=== PATIENT | male | born 1990 | race Caucasian/White ===

== ENCOUNTER 2017-03-24 06:03 | Inpatient (IN) | payer BC, MEDICAID ==
[2017-03-24] VITALS (7 sets, daily range): BP systolic 109–129; BP diastolic 61–77
[~2017-03-24] VITALS: Ht 182.9 cm; Wt 81.6 kg
[2017-03-24] MEDS ORDERED: PANT40TA25 PO (06:06)
[2017-03-24] MEDS ORDERED: PARO10TA89 PO (06:06)
[2017-03-24] MEDS ORDERED: ESZO2 PO (06:06)
[2017-03-24] MEDS ORDERED: HALOPERIDOL 5 MG TABLET PO ONE (06:30)
[2017-03-24 06:42] LABS: BASOPHILS % (AUTO) 0.5 % (0.0-2.0); EOSINOPHILS % (AUTO) 0.8 % (1.0-6.0); HEMATOCRIT 41.9 % (41-53); LYMPHOCYTES # (AUTO) 2.5 K/uL (1.0-4.8); LYMPHOCYTES % (AUTO) 34.3 % (22.0-44.0); MEAN CORPUSCULAR HEMOGLOBIN 29.8 pg (26.0-34.0); MEAN CORPUSCULAR HGB CONC 33.5 G/dL (31.0-37.0); MEAN CORPUSCULAR VOLUME 89 fL (80-100); MONOCYTES # (AUTO) 0.4 K/uL (0.1-1.0); MONOCYTES % (AUTO) 4.9 % (2.0-9.0); NEUTROPHILS # (AUTO) 4.4 K/uL (1.8-7.7); NEUTROPHILS % (AUTO) 59.5 % (40.0-70.0); PLATELET COUNT (AUTO) 162 K/uL (150-450); RED CELL DISTRIBUTION WIDTH 13.3 % (11.5-14.5)
[2017-03-24] MEDS ORDERED: LORazepam 2 MG TABLET PO PRN ×2 (06:45→17:00)
[2017-03-24 06:49] LABS: AMPHET/METH SCREEN,URINE NEGATIVE (NEGATIVE); BARBITURATE SCREEN, URINE NEGATIVE (NEGATIVE); BENZODIAZEPINES SCREEN,URINE POSITIVE (NEGATIVE); CANNABINOID SCREEN,URINE NEGATIVE (NEGATIVE); COCAINE SCREEN,URINE NEGATIVE (NEGATIVE); METHADONE SCREEN, URINE NEGATIVE (NEGATIVE); OPIATE SCREEN,URINE NEGATIVE (NEGATIVE)
[2017-03-24 07:10] LABS: PHENCYCLIDINE SCREEN,URINE NEGATIVE (NEGATIVE)
[2017-03-24 07:15] LABS: ANION GAP 7 mmol/L (8-16); CALCIUM, TOTAL 9.5 mg/dL (8.8-10.5); CARBON DIOXIDE 32 mmol/L (22-29); CHLORIDE 101 mmol/L (98-107); CREATININE 0.92 mg/dL (0.60-1.30); GLOMERULAR FILTR. RATE CALC > 60 mL/min (>60); GLUCOSE,RANDOM 117 mg/dL (70-110); POTASSIUM 3.9 mmol/L (3.5-5.1); SODIUM SERUM 140 mmol/L (136-145); UREA NITROGEN, BLOOD 16 mg/dL (7-18)
[2017-03-24 07:20] LABS: ALANINE AMINOTRANSFERASE 29 U/L (12-78); ALBUMIN 4.1 g/dL (3.4-5.0); ALKALINE PHOSPHATASE 86 U/L (46-116); ASPARTATE AMINOTRANSFERASE 26 U/L (15-37); BILIRUBIN,TOTAL 0.3 mg/dL (0.1-1.0); TOTAL PROTEIN, SERUM 7.7 g/dL (6.4-8.2)
[2017-03-24] MEDS ORDERED: INFLUENZA VIRUS VACCINE QVS 2017-18 (3YR+)/PF 60 MCG/0.5 ML SYRINGE IM ONE (11:30)
[2017-03-24] MEDS ORDERED: PNEUMOCOCCAL VACCINE POLYVALENT 0.5 ML VIAL [PPSV23] IM ONE (11:30)
[2017-03-24] MEDS ORDERED: PHENYLEPHRINE/SHK LV/MIN OIL/PET 57 GM OINTMENT TP PRN (11:45)
[2017-03-24] MEDS: NICOTINE 21 MG/24 HOUR PATCH TD SCH (14:09)
[2017-03-24] MEDS: PSYLLIUM SEED ORANGE SF 5.8 GM/PACKET PO SCH (16:18)
[2017-03-24] MEDS ORDERED: LOPERAMIDE HCL 2 MG CAPSULE PO PRN (17:00)
[2017-03-24] MEDS ORDERED: CYANOCOBALAMIN 1,000 MCG/ML VIAL IM ONE (17:00)
[2017-03-24] MEDS ORDERED: GuaiFENesin/D-METHORPHAN [SUGAR-FREE] 200-20MG/10 ML SYRUP UDCUP PO PRN (17:00)
[2017-03-24] MEDS: THIAMINE HCL 100 MG TABLET PO SCH (17:20)
[2017-03-24] MEDS: DULoxetine HCL 20 MG CAPSULE PO SCH (17:20)
[2017-03-24] MEDS: FOLIC ACID 1 MG TABLET PO SCH (17:20)
[2017-03-24] MEDS: MULTIVITAMINS WITH MINERALS, THERAPEUTIC TABLET PO SCH (17:20)
[2017-03-24] MEDS: TraZODone HCL 50 MG TABLET PO SCH (20:20)
[2017-03-24] MEDS: OLANZapine 5 MG TABLET PO SCH (20:20)
[2017-03-25] VITALS (7 sets, daily range): BP systolic 105–124; BP diastolic 68–78
[2017-03-25 08:45] LABS: CHOL/HDL RATIO 4.2 (4.2-7.3)
[2017-03-25] MEDS: NICOTINE 21 MG/24 HOUR PATCH TD SCH (09:33)
[2017-03-25] MEDS: DULoxetine HCL 20 MG CAPSULE PO SCH ×2 (09:33→17:26)
[2017-03-25] MEDS: PSYLLIUM SEED ORANGE SF 5.8 GM/PACKET PO SCH ×2 (09:33→17:26)
[2017-03-25] MEDS: MULTIVITAMINS WITH MINERALS, THERAPEUTIC TABLET PO SCH (09:34)
[2017-03-25] MEDS: FOLIC ACID 1 MG TABLET PO SCH (09:34)
[2017-03-25] MEDS: PANTOPRAZOLE SODIUM 40 MG DR TABLET PO SCH (09:34)
[2017-03-25] MEDS: THIAMINE HCL 100 MG TABLET PO SCH ×2 (09:34→17:26)
[2017-03-25] MEDS: LORazepam 2 MG TABLET PO SCH ×4 (09:34→20:50)
[2017-03-25] MEDS: ALBUTEROL SULFATE HFA 90 MCG/PUFF 8 GM INHALER IH PRN ×2 (10:35→18:09)
[2017-03-25] MEDS: HALOPERIDOL 5 MG TABLET PO PRN (11:18)
[2017-03-25] MEDS: TraZODone HCL 50 MG TABLET PO SCH (20:49)
[2017-03-25] MEDS: OLANZapine 5 MG TABLET PO SCH (20:49)
[2017-03-26 05:38] VITALS: BP 125/84
[2017-03-26] MEDS: LORazepam 2 MG TABLET PO PRN ×2 (05:52→18:58)
[2017-03-26] MEDS: ALBUTEROL SULFATE HFA 90 MCG/PUFF 8 GM INHALER IH PRN ×2 (05:53→14:30)
[2017-03-26] MEDS: LORazepam 2 MG TABLET PO SCH ×5 (08:45→21:39)
[2017-03-26] MEDS: THIAMINE HCL 100 MG TABLET PO SCH ×2 (08:45→16:17)
[2017-03-26] MEDS: HALOPERIDOL 5 MG TABLET PO PRN ×2 (08:45→18:57)
[2017-03-26] MEDS: FOLIC ACID 1 MG TABLET PO SCH (08:45)
[2017-03-26] MEDS: MULTIVITAMINS WITH MINERALS, THERAPEUTIC TABLET PO SCH (08:45)
[2017-03-26] MEDS: PANTOPRAZOLE SODIUM 40 MG DR TABLET PO SCH (08:45)
[2017-03-26] MEDS ORDERED: AZITHROMYCIN 250 MG TABLET PO ONE (08:45)
[2017-03-26] MEDS: PSYLLIUM SEED ORANGE SF 5.8 GM/PACKET PO SCH ×5 (08:45→21:15)
[2017-03-26] MEDS ORDERED: AZITHROMYCIN 250 MG TABLET PO SCH (09:00)
[2017-03-26] MEDS: NICOTINE 21 MG/24 HOUR PATCH TD SCH (09:04)
[2017-03-26 09:15] VITALS: BP 115/60
[2017-03-26 09:16] VITALS: BP 115/60
[2017-03-26] MEDS: DULoxetine HCL 20 MG CAPSULE PO SCH ×2 (09:56→16:17)
[2017-03-26 16:12] VITALS: BP 122/80
[2017-03-26 16:13] VITALS: BP 122/80
[2017-03-26] MEDS: OLANZapine 5 MG TABLET PO SCH (21:39)
[2017-03-26] MEDS: TraZODone HCL 50 MG TABLET PO SCH (21:39)
[2017-03-26] MEDS: ZOLPIDEM TARTRATE 10 MG TABLET PO PRN (21:45)
[2017-03-27 01:21] VITALS: BP_SYST 102; BP_DIAS 60; BP_DIAS 62
[2017-03-27] MEDS ORDERED: LORazepam 1 MG TABLET PO PRN (07:00)
[2017-03-27] MEDS: DULoxetine HCL 20 MG CAPSULE PO SCH ×2 (08:12→17:57)
[2017-03-27] MEDS: NICOTINE 21 MG/24 HOUR PATCH TD SCH (08:12)
[2017-03-27] MEDS: LORazepam 1 MG TABLET PO SCH ×4 (08:12→22:00)
[2017-03-27] MEDS: AZITHROMYCIN 250 MG TABLET PO SCH (08:12)
[2017-03-27] MEDS: FOLIC ACID 1 MG TABLET PO SCH (08:12)
[2017-03-27] MEDS: PSYLLIUM SEED ORANGE SF 5.8 GM/PACKET PO SCH ×4 (08:13→17:58)
[2017-03-27] MEDS: THIAMINE HCL 100 MG TABLET PO SCH ×2 (08:13→17:57)
[2017-03-27] MEDS: PANTOPRAZOLE SODIUM 40 MG DR TABLET PO SCH (08:13)
[2017-03-27 08:23] VITALS: BP 120/63
[2017-03-27 08:24] VITALS: BP 120/63
[2017-03-27] MEDS: ALBUTEROL SULFATE HFA 90 MCG/PUFF 8 GM INHALER IH PRN ×3 (08:35→17:07)
[2017-03-27] MEDS: MOMETASONE FUROATE 50 MCG/SPRAY 17 GM NASAL SPRAY NASAL SCH (09:00)
[2017-03-27] MEDS: HALOPERIDOL 5 MG TABLET PO PRN (14:42)
[2017-03-27] MEDS ORDERED: DiphenhydrAMINE HCL 50 MG/ML VIAL ONE (15:22)
[2017-03-27] MEDS ORDERED: LORazepam 2 MG/ML VIAL IM ONE (15:30)
[2017-03-27] MEDS ORDERED: HALOPERIDOL LACTATE 5 MG/ML VIAL IM ONE (15:30)
[2017-03-27] MEDS ORDERED: DiphenhydrAMINE HCL 50 MG/ML VIAL IM ONE (15:30)
[2017-03-27 16:30] VITALS: BP 117/68
[2017-03-27 17:07] VITALS: BP 117/68
[2017-03-27] MEDS: TraZODone HCL 50 MG TABLET PO SCH (21:06)
[2017-03-27] MEDS: OLANZapine 5 MG TABLET PO SCH (21:06)
[2017-03-27] MEDS: ZOLPIDEM TARTRATE 10 MG TABLET PO PRN (22:55)
[2017-03-28] VITALS: BP 109/68
[2017-03-28] MEDS ORDERED: LORazepam 1 MG TABLET PO PRN (07:00)
[2017-03-28 08:31] VITALS: BP 120/91
[2017-03-28 08:32] VITALS: BP 120/91
[2017-03-28] MEDS: AZITHROMYCIN 250 MG TABLET PO SCH (09:34)
[2017-03-28] MEDS: DULoxetine HCL 20 MG CAPSULE PO SCH ×2 (09:34→17:29)
[2017-03-28] MEDS: FOLIC ACID 1 MG TABLET PO SCH (09:35)
[2017-03-28] MEDS: PANTOPRAZOLE SODIUM 40 MG DR TABLET PO SCH (09:35)
[2017-03-28] MEDS: THIAMINE HCL 100 MG TABLET PO SCH ×2 (09:35→17:29)
[2017-03-28] MEDS: MOMETASONE FUROATE 50 MCG/SPRAY 17 GM NASAL SPRAY NASAL SCH ×2 (09:35→17:30)
[2017-03-28] MEDS: PSYLLIUM SEED ORANGE SF 5.8 GM/PACKET PO SCH ×3 (09:35→17:29)
[2017-03-28] MEDS: NICOTINE 21 MG/24 HOUR PATCH TD SCH (09:36)
[2017-03-28] MEDS: BACITRACIN 28.4 GM OINTMENT TP SCH ×2 (09:42→17:30)
[2017-03-28] MEDS: HALOPERIDOL 5 MG TABLET PO PRN (09:43)
[2017-03-28 13:49] VITALS: BP 119/76
[2017-03-28 17:20] VITALS: BP 121/71
[2017-03-28] MEDS: OLANZapine 5 MG TABLET PO SCH (20:39)
[2017-03-28] MEDS: TraZODone HCL 100 MG TABLET PO SCH (20:39)
[2017-03-29] MEDS: ZOLPIDEM TARTRATE 10 MG TABLET PO PRN ×2 (00:23→20:58)
[2017-03-29 00:42] VITALS: BP 118/62
[2017-03-29 00:53] VITALS: BP 118/64
[2017-03-29] MEDS: MOMETASONE FUROATE 50 MCG/SPRAY 17 GM NASAL SPRAY NASAL SCH ×2 (08:45→16:15)
[2017-03-29] MEDS: NICOTINE 21 MG/24 HOUR PATCH TD SCH (08:45)
[2017-03-29] MEDS: PANTOPRAZOLE SODIUM 40 MG DR TABLET PO SCH (08:45)
[2017-03-29] MEDS: PSYLLIUM SEED ORANGE SF 5.8 GM/PACKET PO SCH ×3 (08:45→16:15)
[2017-03-29] MEDS: THIAMINE HCL 100 MG TABLET PO SCH ×2 (08:45→16:15)
[2017-03-29] MEDS: DULoxetine HCL 20 MG CAPSULE PO SCH ×2 (08:45→16:15)
[2017-03-29] MEDS: AZITHROMYCIN 250 MG TABLET PO SCH (08:45)
[2017-03-29] MEDS: FOLIC ACID 1 MG TABLET PO SCH (08:45)
[2017-03-29] MEDS: BACITRACIN 28.4 GM OINTMENT TP SCH ×2 (08:46→17:25)
[2017-03-29] MEDS: HydrOXYzine PAMOATE 50 MG CAPSULE PO PRN ×2 (09:24→13:23)
[2017-03-29] MEDS: IBUPROFEN 600 MG TABLET PO PRN ×2 (09:29→15:50)
[2017-03-29] MEDS: ALBUTEROL SULFATE HFA 90 MCG/PUFF 8 GM INHALER IH PRN ×2 (09:30→16:15)
[2017-03-29 09:55] VITALS: BP 121/85
[2017-03-29 13:22] VITALS: BP 121/85
[2017-03-29] MEDS: HALOPERIDOL 5 MG TABLET PO PRN (15:51)
[2017-03-29 16:08] VITALS: BP 119/76
[2017-03-29] MEDS ORDERED: DiphenhydrAMINE HCL 25 MG CAPSULE PO ONE (18:45)
[2017-03-29] MEDS: OLANZapine 5 MG TABLET PO SCH (20:57)
[2017-03-29] MEDS: TraZODone HCL 100 MG TABLET PO SCH (20:58)
[2017-03-29 21:07] VITALS: BP 119/76
[2017-03-30 00:54] VITALS: BP 105/68
[2017-03-30 06:23] VITALS: BP 105/74
[2017-03-30 08:14] VITALS: BP 122/74
[2017-03-30] MEDS: MOMETASONE FUROATE 50 MCG/SPRAY 17 GM NASAL SPRAY NASAL SCH ×2 (08:25→16:52)
[2017-03-30] MEDS: THIAMINE HCL 100 MG TABLET PO SCH ×2 (08:26→16:51)
[2017-03-30] MEDS: DULoxetine HCL 20 MG CAPSULE PO SCH ×2 (08:26→16:51)
[2017-03-30] MEDS: FOLIC ACID 1 MG TABLET PO SCH (08:26)
[2017-03-30] MEDS: AZITHROMYCIN 250 MG TABLET PO SCH (08:26)
[2017-03-30] MEDS: PANTOPRAZOLE SODIUM 40 MG DR TABLET PO SCH (08:26)
[2017-03-30] MEDS: PSYLLIUM SEED ORANGE SF 5.8 GM/PACKET PO SCH ×3 (08:27→16:52)
[2017-03-30] MEDS: NICOTINE 21 MG/24 HOUR PATCH TD SCH (08:27)
[2017-03-30] MEDS: BACITRACIN 28.4 GM OINTMENT TP SCH ×2 (08:32→16:52)
[2017-03-30 08:48] VITALS: BP 122/74
[2017-03-30 09:03] LABS: CREATINE KINASE MB 1.4 ng/mL (0-5); CREATINE KINASE, TOTAL 139 U/L (39-308)
[2017-03-30] MEDS: IBUPROFEN 600 MG TABLET PO PRN (09:49)
[2017-03-30 16:34] VITALS: BP 122/83
[2017-03-30] MEDS: OLANZapine 5 MG TABLET PO SCH (20:38)
[2017-03-30] MEDS: ZOLPIDEM TARTRATE 10 MG TABLET PO PRN (20:38)
[2017-03-30] MEDS: TraZODone HCL 100 MG TABLET PO SCH (20:38)
[2017-03-31 06:02] VITALS: BP 122/83
[2017-03-31 06:36] VITALS: BP 114/84
[2017-03-31 08:12] VITALS: BP 113/56
[2017-03-31] MEDS: DULoxetine HCL 20 MG CAPSULE PO SCH ×2 (08:40→16:48)
[2017-03-31] MEDS: FOLIC ACID 1 MG TABLET PO SCH (08:40)
[2017-03-31] MEDS: PANTOPRAZOLE SODIUM 40 MG DR TABLET PO SCH (08:40)
[2017-03-31] MEDS: THIAMINE HCL 100 MG TABLET PO SCH ×2 (08:40→16:48)
[2017-03-31] MEDS: PSYLLIUM SEED ORANGE SF 5.8 GM/PACKET PO SCH ×3 (08:40→16:48)
[2017-03-31] MEDS: NICOTINE 21 MG/24 HOUR PATCH TD SCH (08:41)
[2017-03-31] MEDS: MOMETASONE FUROATE 50 MCG/SPRAY 17 GM NASAL SPRAY NASAL SCH ×2 (08:41→16:48)
[2017-03-31] MEDS: BACITRACIN 28.4 GM OINTMENT TP SCH ×2 (08:45→16:48)
[2017-03-31] MEDS: HALOPERIDOL 5 MG TABLET PO PRN (08:54)
[2017-03-31] MEDS: IBUPROFEN 600 MG TABLET PO PRN ×2 (09:04→16:49)
[2017-03-31 16:00] VITALS: BP 119/72
[2017-03-31] MEDS: OLANZapine 5 MG TABLET PO SCH (20:10)
[2017-03-31] MEDS: TraZODone HCL 100 MG TABLET PO SCH (20:10)
[2017-04-01 06:36] VITALS: BP 121/71
[2017-04-01] MEDS: DULoxetine HCL 20 MG CAPSULE PO SCH ×2 (08:07→16:40)
[2017-04-01] MEDS: MOMETASONE FUROATE 50 MCG/SPRAY 17 GM NASAL SPRAY NASAL SCH ×2 (08:07→16:39)
[2017-04-01] MEDS: NICOTINE 21 MG/24 HOUR PATCH TD SCH (08:07)
[2017-04-01] MEDS: PANTOPRAZOLE SODIUM 40 MG DR TABLET PO SCH (08:07)
[2017-04-01] MEDS: FOLIC ACID 1 MG TABLET PO SCH (08:07)
[2017-04-01] MEDS: THIAMINE HCL 100 MG TABLET PO SCH ×2 (08:07→16:40)
[2017-04-01] MEDS: PSYLLIUM SEED ORANGE SF 5.8 GM/PACKET PO SCH ×3 (08:07→16:40)
[2017-04-01] MEDS: BACITRACIN 28.4 GM OINTMENT TP SCH ×2 (08:08→16:43)
[2017-04-01] MEDS: IBUPROFEN 600 MG TABLET PO PRN (08:13)
[2017-04-01 08:15] VITALS: BP 122/72
[2017-04-01 09:39] VITALS: BP 122/72
[2017-04-01 16:18] VITALS: BP 124/77
[2017-04-01] MEDS: ALBUTEROL SULFATE HFA 90 MCG/PUFF 8 GM INHALER IH PRN (16:40)
[2017-04-01] MEDS: OLANZapine 5 MG TABLET PO SCH (20:24)
[2017-04-01] MEDS: ZOLPIDEM TARTRATE 10 MG TABLET PO PRN (20:25)
[2017-04-01] MEDS: TraZODone HCL 100 MG TABLET PO SCH (20:25)
[2017-04-02 05:32] VITALS: BP 120/79
[2017-04-02] MEDS: FOLIC ACID 1 MG TABLET PO SCH (08:36)
[2017-04-02] MEDS: MOMETASONE FUROATE 50 MCG/SPRAY 17 GM NASAL SPRAY NASAL SCH (08:36)
[2017-04-02] MEDS: NICOTINE 21 MG/24 HOUR PATCH TD SCH (08:36)
[2017-04-02] MEDS: PSYLLIUM SEED ORANGE SF 5.8 GM/PACKET PO SCH ×2 (08:36→12:24)
[2017-04-02] MEDS: THIAMINE HCL 100 MG TABLET PO SCH (08:36)
[2017-04-02] MEDS: DULoxetine HCL 20 MG CAPSULE PO SCH (08:36)
[2017-04-02] MEDS: PANTOPRAZOLE SODIUM 40 MG DR TABLET PO SCH (08:36)
[2017-04-02] MEDS: ALBUTEROL SULFATE HFA 90 MCG/PUFF 8 GM INHALER IH PRN (08:37)
[2017-04-02 08:56] VITALS: BP 122/74
[2017-04-02] MEDS: BACITRACIN 28.4 GM OINTMENT TP SCH (08:56)
[2017-04-02] MEDS ORDERED: OLAN5TAB2 PO (13:35)
[2017-04-02] MEDS ORDERED: NICO-704 TD (13:35)
[2017-04-02] MEDS ORDERED: DULO20CA30 PO (13:35)
[2017-04-02] MEDS ORDERED: TRAZ-147 PO (13:35)
[2017-04-02] MEDS ORDERED: PANT40TA25 PO (13:35)
== END 2017-04-02 14:30 | disposition home or self-care (01) | DRG 750 ==
LOC: EMS 06:04 → B2S 07:58
PROVIDERS: ADMIT Psychiatry & Neurology Child & Adolescent Psychiatry; ATTEND Psychiatry & Neurology Child & Adolescent Psychiatry
PROC: 3E0234Z Introduction of Serum, Toxoid and Vaccine into Muscle, Percutaneous Approach (ICD-10-PCS; principal; 2017-03-24)
DX: F25.1 Schizoaffective disorder, depressive type (principal); R45.851 Suicidal ideations; F29 Unspecified psychosis not due to a substance or known physiological condition; F41.9 Anxiety disorder, unspecified; J45.909 Unspecified asthma, uncomplicated; S01.91XA Laceration without foreign body of unspecified part of head, initial encounter; F15.90 Other stimulant use, unspecified, uncomplicated; K21.9 Gastro-esophageal reflux disease without esophagitis; K64.9 Unspecified hemorrhoids; F17.210 Nicotine dependence, cigarettes, uncomplicated; F60.3 Borderline personality disorder; F10.20 Alcohol dependence, uncomplicated; X78.1XXA Intentional self-harm by knife, initial encounter; Z90.49 Acquired absence of other specified parts of digestive tract; Z81.8 Family history of other mental and behavioral disorders; Z79.899 Other long term (current) drug therapy; Y93.89 Activity, other specified; Z91.5 Personal history of self-harm; Y92.89 Other specified places as the place of occurrence of the external cause; Z23 Encounter for immunization
CPT/HCPCS: 99285; G0480; J1200; J1630; J2060; J3420; J3535

== ENCOUNTER 2017-03-28 13:49 | Emergency (ER) | payer MEDICAID ==
[~2017-03-28] VITALS: Ht 182.9 cm; Wt 81.8 kg
[~2017-03-28 13:49] MED LIST: ESZO2 PO; PANT40TA25 PO; PARO10TA89 PO
[2017-03-28] MEDS ORDERED: KETOROLAC TROMETHAMINE 60 MG/2 ML VIAL IM ONE (14:45)
[2017-03-28] MEDS ORDERED: LORazepam 2 MG TABLET PO ONE (14:45)
[2017-03-28 16:17] VITALS: BP 120/78
== END 2017-03-28 16:59 | disposition home or self-care (01) ==
LOC: EMS 13:50
DX: S13.4XXA Sprain of ligaments of cervical spine, initial encounter (principal); S00.03XA Contusion of scalp, initial encounter; S20.229A Contusion of unspecified back wall of thorax, initial encounter; J45.909 Unspecified asthma, uncomplicated; F17.210 Nicotine dependence, cigarettes, uncomplicated; Z71.6 Tobacco abuse counseling; Z79.899 Other long term (current) drug therapy; W01.0XXA Fall on same level from slipping, tripping and stumbling without subsequent striking against object, initial encounter; Y93.89 Activity, other specified; Y92.89 Other specified places as the place of occurrence of the external cause; Y99.8 Other external cause status
CPT/HCPCS: 70450; 72070; 72100; 72125; 96372; 99284; 99406; J1885

== ENCOUNTER 2017-10-01 18:17 | Inpatient (IN) | payer MEDICAID ==
[~2017-10-01] VITALS: Ht 182.9 cm; Wt 83.0 kg
[~2017-10-01 18:17] MED LIST changes: +DULO20CA30 PO; -ESZO2 PO; -PANT40TA25 PO; -PARO10TA89 PO
[2017-10-01] MEDS ORDERED: HALOPERIDOL 5 MG TABLET PO PRN (21:15)
[2017-10-01 22:07] VITALS: BP 116/65
[2017-10-01] MEDS ORDERED: PNEUMOCOCCAL VACCINE POLYVALENT 0.5 ML VIAL [PPSV23] IM ONE (22:15)
[2017-10-01] MEDS: ZOLPIDEM TARTRATE 10 MG TABLET PO PRN (22:27)
[2017-10-02] VITALS (10 sets, daily range): BP systolic 105–124; BP diastolic 60–80
[2017-10-02] MEDS: LORazepam 2 MG TABLET PO PRN ×3 (00:02→16:06)
[2017-10-02 07:50] LABS: BASOPHILS % (AUTO) 0.6 % (0.0-2.0); HEMATOCRIT 40.6 % (41-53); HEMOGLOBIN 13.6 g/dL (13.5-17.5); LYMPHOCYTES # (AUTO) 2.8 K/uL (1.0-4.8); LYMPHOCYTES % (AUTO) 45.7 % (22.0-44.0); MEAN CORPUSCULAR HEMOGLOBIN 30.6 pg (26.0-34.0); MEAN CORPUSCULAR HGB CONC 33.6 G/dL (31.0-37.0); MEAN CORPUSCULAR VOLUME 91 fL (80-100); MONOCYTES # (AUTO) 0.4 K/uL (0.1-1.0); MONOCYTES % (AUTO) 6.6 % (2.0-9.0); NEUTROPHILS # (AUTO) 2.8 K/uL (1.8-7.7); NEUTROPHILS % (AUTO) 45.1 % (40.0-70.0); PLATELET COUNT (AUTO) 139 K/uL (150-450); RED BLOOD CELL COUNT(AUTO) 4.46 MIL/uL (4.50-5.90); RED CELL DISTRIBUTION WIDTH 13.7 % (11.5-14.5)
[2017-10-02 08:14] LABS: HEMOGLOBIN A1C 5.4 % (4.5-6.2)
[2017-10-02 08:20] LABS: AMPHET/METH SCREEN,URINE NEGATIVE (NEGATIVE); BARBITURATE SCREEN, URINE NEGATIVE (NEGATIVE); BENZODIAZEPINES SCREEN,URINE NEGATIVE (NEGATIVE); CANNABINOID SCREEN,URINE NEGATIVE (NEGATIVE); COCAINE SCREEN,URINE NEGATIVE (NEGATIVE); METHADONE SCREEN, URINE NEGATIVE (NEGATIVE); OPIATE SCREEN,URINE NEGATIVE (NEGATIVE)
[2017-10-02 08:21] LABS: PHENCYCLIDINE SCREEN,URINE NEGATIVE (NEGATIVE)
[2017-10-02 08:27] LABS: APPEARANCE,URINE CLEAR (CLEAR); BILIRUBIN,URINE NEGATIVE (NEGATIVE); GLUCOSE, URINE (UA) NEGATIVE (NEGATIVE); KETONES,URINE NEGATIVE (NEGATIVE); LEUKOCYTE ESTERASE ,URINE NEGATIVE (NEGATIVE); NITRATE,URINE NEGATIVE (NEGATIVE); OCCULT BLOOD,URINE NEGATIVE (NEGATIVE); PROTEIN,URINE NEGATIVE (NEGATIVE); UROBILINOGEN,URINE 0.2 mg/dL (<=1.0)
[2017-10-02 08:57] LABS: ALANINE AMINOTRANSFERASE 27 U/L (12-78); ALBUMIN 3.7 g/dL (3.4-5.0); ALKALINE PHOSPHATASE 63 U/L (46-116); ANION GAP 6 mmol/L (8-16); ASPARTATE AMINOTRANSFERASE 19 U/L (15-37); BILIRUBIN,TOTAL 0.3 mg/dL (0.1-1.0); CALCIUM, TOTAL 8.9 mg/dL (8.8-10.5); CARBON DIOXIDE 29 mmol/L (22-29); CHLORIDE 105 mmol/L (98-107); CHOL/HDL RATIO 4.3 (4.2-7.3); CHOLESTEROL 158 mg/dL (131-200); CREATININE 0.82 mg/dL (0.60-1.30); FREE T4 (FREE THYROXINE) 0.79 ng/dL (0.76-1.46); GLOMERULAR FILTR. RATE CALC > 60 mL/min (>60); GLUCOSE,RANDOM 86 mg/dL (70-110); HDL CHOLESTEROL 37 mg/dL (40-60); LDL CHOL (CALC.) 105 mg/dL (0-130); POTASSIUM 4.1 mmol/L (3.5-5.1); SODIUM SERUM 140 mmol/L (136-145); THYROID STIMULATING HORMONE 2.48 uIU/mL (0.36-3.74); TOTAL PROTEIN, SERUM 6.3 g/dL (6.4-8.2); TRIGLYCERIDES 78 mg/dL (15-150); UREA NITROGEN, BLOOD 13 mg/dL (7-18)
[2017-10-02] MEDS ORDERED: CYANOCOBALAMIN 1,000 MCG/ML VIAL IM ONE (11:00)
[2017-10-02] MEDS: FOLIC ACID 1 MG TABLET PO SCH (12:02)
[2017-10-02] MEDS: DULoxetine HCL 30 MG CAPSULE PO SCH (12:02)
[2017-10-02] MEDS: MULTIVITAMINS WITH MINERALS, THERAPEUTIC TABLET PO SCH (12:02)
[2017-10-02] MEDS: THIAMINE HCL 100 MG TABLET PO SCH ×2 (12:02→16:04)
[2017-10-02] MEDS ORDERED: IBUPROFEN 400 MG TABLET PO PRN (14:00)
[2017-10-02] MEDS ORDERED: MAG HYDROX/AL HYDROX/SIMETH ES 30 ML SUSPENSION UDCUP PO PRN (14:00)
[2017-10-02] MEDS ORDERED: NICOTINE 14 MG/24 HOUR PATCH TD PRN (14:00)
[2017-10-02] MEDS ORDERED: ACETAMINOPHEN 325 MG TABLET PO PRN (14:00)
[2017-10-02] MEDS ORDERED: LOPERAMIDE HCL 2 MG CAPSULE PO PRN (14:00)
[2017-10-02] MEDS ORDERED: CloNIDine HCL 0.1 MG TABLET PO PRN (14:00)
[2017-10-02] MEDS ORDERED: ALBUTEROL SULFATE HFA 90 MCG/PUFF 8 GM INHALER IH PRN (14:00)
[2017-10-02] MEDS ORDERED: PETROLATUM,WHITE 71 GM JELLY TP PRN (14:00)
[2017-10-02] MEDS ORDERED: ONDANSETRON HCL 4 MG TABLET PO PRN (14:00)
[2017-10-02] MEDS ORDERED: MAGNESIUM HYDROXIDE SUSPENSION 30 ML UDCUP PO PRN (14:00)
[2017-10-02] MEDS ORDERED: DOCUSATE SODIUM 100 MG CAPSULE PO PRN (14:00)
[2017-10-02] MEDS: NEOMYCIN/BACITRACIN/POLYMYXIN B 30 GM OINTMENT TP SCH (16:05)
[2017-10-02] MEDS: GuaiFENesin/D-METHORPHAN [SUGAR-FREE] 200-20MG/10 ML SYRUP UDCUP PO PRN (16:47)
[2017-10-03] VITALS (8 sets, daily range): BP systolic 110–121; BP diastolic 64–86
[2017-10-03] MEDS: ZOLPIDEM TARTRATE 10 MG TABLET PO PRN ×2 (00:07→22:13)
[2017-10-03] MEDS: LORazepam 2 MG TABLET PO PRN (02:57)
[2017-10-03] MEDS: GuaiFENesin/D-METHORPHAN [SUGAR-FREE] 200-20MG/10 ML SYRUP UDCUP PO PRN ×3 (02:58→20:32)
[2017-10-03] MEDS: DULoxetine HCL 30 MG CAPSULE PO SCH (08:51)
[2017-10-03] MEDS: THIAMINE HCL 100 MG TABLET PO SCH ×2 (08:52→17:34)
[2017-10-03] MEDS: NEOMYCIN/BACITRACIN/POLYMYXIN B 30 GM OINTMENT TP SCH ×2 (08:52→17:34)
[2017-10-03] MEDS: FOLIC ACID 1 MG TABLET PO SCH (08:52)
[2017-10-03] MEDS: MULTIVITAMINS WITH MINERALS, THERAPEUTIC TABLET PO SCH (08:52)
[2017-10-03] MEDS: LORazepam 2 MG TABLET PO SCH ×4 (08:52→21:36)
[2017-10-04 03:22] VITALS: BP_SYST 116; BP_SYST 122; BP_DIAS 67; BP_DIAS 70
[2017-10-04] MEDS: GuaiFENesin/D-METHORPHAN [SUGAR-FREE] 200-20MG/10 ML SYRUP UDCUP PO PRN ×3 (03:27→20:06)
[2017-10-04] MEDS: LORazepam 2 MG TABLET PO PRN (03:28)
[2017-10-04 05:08] VITALS: BP 116/70
[2017-10-04] MEDS: FOLIC ACID 1 MG TABLET PO SCH (08:03)
[2017-10-04] MEDS: MULTIVITAMINS WITH MINERALS, THERAPEUTIC TABLET PO SCH (08:03)
[2017-10-04] MEDS: LORazepam 2 MG TABLET PO SCH ×4 (08:03→20:13)
[2017-10-04] MEDS: THIAMINE HCL 100 MG TABLET PO SCH ×2 (08:03→16:09)
[2017-10-04] MEDS: DULoxetine HCL 30 MG CAPSULE PO SCH (08:03)
[2017-10-04] MEDS: NEOMYCIN/BACITRACIN/POLYMYXIN B 30 GM OINTMENT TP SCH ×2 (08:04→16:10)
[2017-10-04 08:28] VITALS: BP 116/64
[2017-10-04 16:13] VITALS: BP 130/73
[2017-10-04 16:14] VITALS: BP 125/76
[2017-10-04] MEDS: ZOLPIDEM TARTRATE 10 MG TABLET PO PRN (20:54)
[2017-10-05 01:00] VITALS: BP 111/60
[2017-10-05] MEDS: LORazepam 2 MG TABLET PO PRN ×2 (01:05→04:32)
[2017-10-05] MEDS: GuaiFENesin/D-METHORPHAN [SUGAR-FREE] 200-20MG/10 ML SYRUP UDCUP PO PRN ×3 (04:32→20:15)
[2017-10-05] MEDS ORDERED: LORazepam 1 MG TABLET PO PRN (07:00)
[2017-10-05 08:00] VITALS: BP 117/75
[2017-10-05] MEDS: LORazepam 1 MG TABLET PO SCH ×4 (08:28→21:22)
[2017-10-05] MEDS: MULTIVITAMINS WITH MINERALS, THERAPEUTIC TABLET PO SCH (08:28)
[2017-10-05] MEDS: FOLIC ACID 1 MG TABLET PO SCH (08:28)
[2017-10-05] MEDS: DULoxetine HCL 30 MG CAPSULE PO SCH (08:28)
[2017-10-05] MEDS: THIAMINE HCL 100 MG TABLET PO SCH ×2 (08:28→17:21)
[2017-10-05] MEDS: NEOMYCIN/BACITRACIN/POLYMYXIN B 30 GM OINTMENT TP SCH ×2 (08:31→17:21)
[2017-10-05 08:51] VITALS: BP 117/75
[2017-10-05 16:24] VITALS: BP 110/69
[2017-10-05] MEDS: ZOLPIDEM TARTRATE 10 MG TABLET PO PRN (21:47)
[2017-10-06 02:33] VITALS: BP 115/70
[2017-10-06 08:00] VITALS: BP 132/68
[2017-10-06] MEDS: FOLIC ACID 1 MG TABLET PO SCH (08:09)
[2017-10-06] MEDS: MULTIVITAMINS WITH MINERALS, THERAPEUTIC TABLET PO SCH (08:09)
[2017-10-06] MEDS: DULoxetine HCL 30 MG CAPSULE PO SCH (08:09)
[2017-10-06] MEDS: THIAMINE HCL 100 MG TABLET PO SCH ×2 (08:09→16:46)
[2017-10-06] MEDS: NEOMYCIN/BACITRACIN/POLYMYXIN B 30 GM OINTMENT TP SCH ×2 (08:10→16:48)
[2017-10-06 08:32] VITALS: BP 132/68
[2017-10-06] MEDS: GuaiFENesin/D-METHORPHAN [SUGAR-FREE] 200-20MG/10 ML SYRUP UDCUP PO PRN ×2 (09:02→18:02)
[2017-10-06] MEDS: LORazepam 1 MG TABLET PO PRN ×3 (09:03→23:02)
[2017-10-06 18:10] VITALS: BP 127/90
[2017-10-06 18:11] VITALS: BP 127/90
[2017-10-06] MEDS: ZOLPIDEM TARTRATE 10 MG TABLET PO PRN (20:09)
[2017-10-07 04:36] VITALS: BP 113/65
[2017-10-07 04:38] VITALS: BP 120/81
[2017-10-07] MEDS: LORazepam 1 MG TABLET PO PRN (04:41)
[2017-10-07 08:27] VITALS: BP 117/74
[2017-10-07] MEDS: DULoxetine HCL 30 MG CAPSULE PO SCH (08:46)
[2017-10-07] MEDS: MULTIVITAMINS WITH MINERALS, THERAPEUTIC TABLET PO SCH (08:46)
[2017-10-07] MEDS: FOLIC ACID 1 MG TABLET PO SCH (08:46)
[2017-10-07] MEDS: THIAMINE HCL 100 MG TABLET PO SCH (08:46)
[2017-10-07] MEDS: NEOMYCIN/BACITRACIN/POLYMYXIN B 30 GM OINTMENT TP SCH (08:47)
[2017-10-07] MEDS: GuaiFENesin/D-METHORPHAN [SUGAR-FREE] 200-20MG/10 ML SYRUP UDCUP PO PRN (08:55)
[2017-10-07] MEDS ORDERED: DULO30CA2 PO ×2 (11:06→11:18)
[2017-10-07] MEDS ORDERED: FOLI1 PO (11:18)
[2017-10-07] MEDS ORDERED: MULT-1239 PO (11:18)
[2017-10-07] MEDS ORDERED: THIA100T67 PO (11:18)
== END 2017-10-07 13:20 | disposition home or self-care (01) | DRG 750 ==
LOC: B2S 21:11
DX: F25.1 Schizoaffective disorder, depressive type (principal); D69.6 Thrombocytopenia, unspecified; R45.851 Suicidal ideations; F10.10 Alcohol abuse, uncomplicated; J45.909 Unspecified asthma, uncomplicated; F15.90 Other stimulant use, unspecified, uncomplicated; F12.90 Cannabis use, unspecified, uncomplicated; R05 Cough; F19.10 Other psychoactive substance abuse, uncomplicated; Z59.0 Homelessness; Z87.820 Personal history of traumatic brain injury; Z91.5 Personal history of self-harm
CPT/HCPCS: 80307; 83036; 84439; 84443; 87081; J3420

== ENCOUNTER 2017-10-15 19:23 | Inpatient (IN) | payer MEDICAID ==
[~2017-10-15] VITALS: Ht 182.9 cm; Wt 84.4 kg
[~2017-10-15 19:23] MED LIST changes: -DULO20CA30 PO; +DULO30CA2 PO; +FOLI1 PO; +MULT-1239 PO; +THIA100T67 PO
[2017-10-15 21:00] VITALS: BP 112/70
[2017-10-15] MEDS ORDERED: GuaiFENesin/D-METHORPHAN [SUGAR-FREE] 200-20MG/10 ML SYRUP UDCUP PO PRN (21:45)
[2017-10-15] MEDS ORDERED: IBUPROFEN 400 MG TABLET PO PRN (21:45)
[2017-10-15] MEDS ORDERED: MAG HYDROX/AL HYDROX/SIMETH ES 30 ML SUSPENSION UDCUP PO PRN (21:45)
[2017-10-15] MEDS ORDERED: MAGNESIUM HYDROXIDE SUSPENSION 30 ML UDCUP PO PRN (21:45)
[2017-10-15] MEDS ORDERED: LOPERAMIDE HCL 2 MG CAPSULE PO PRN (21:45)
[2017-10-15] MEDS ORDERED: CloNIDine HCL 0.1 MG TABLET PO PRN (21:45)
[2017-10-15] MEDS ORDERED: HALOPERIDOL 5 MG TABLET PO PRN (21:45)
[2017-10-15] MEDS ORDERED: NICOTINE 14 MG/24 HOUR PATCH TD PRN (21:45)
[2017-10-15] MEDS ORDERED: ACETAMINOPHEN 325 MG TABLET PO PRN (21:45)
[2017-10-15] MEDS ORDERED: ONDANSETRON HCL 4 MG TABLET PO PRN (21:45)
[2017-10-15] MEDS ORDERED: ALBUTEROL SULFATE HFA 90 MCG/PUFF 8 GM INHALER IH PRN (21:45)
[2017-10-15] MEDS ORDERED: DOCUSATE SODIUM 100 MG CAPSULE PO PRN (21:45)
[2017-10-15] MEDS ORDERED: PETROLATUM,WHITE 71 GM JELLY TP PRN (21:45)
[2017-10-15] MEDS: ZOLPIDEM TARTRATE 10 MG TABLET PO PRN (21:56)
[2017-10-15 22:02] VITALS: BP 109/60
[2017-10-15 23:02] VITALS: BP 112/60
[2017-10-16] VITALS (9 sets, daily range): BP systolic 107–117; BP diastolic 63–78
[2017-10-16] MEDS: DULoxetine HCL 30 MG CAPSULE PO SCH (09:54)
[2017-10-16] MEDS ORDERED: BACITRACIN 28.4 GM OINTMENT TP PRN (13:30)
[2017-10-16] MEDS: ZOLPIDEM TARTRATE 10 MG TABLET PO PRN (20:06)
[2017-10-17 06:15] VITALS: BP 116/62
[2017-10-17 08:14] VITALS: BP 119/59
[2017-10-17] MEDS: FOLIC ACID 1 MG TABLET PO SCH (09:00)
[2017-10-17] MEDS: DULoxetine HCL 30 MG CAPSULE PO SCH (09:00)
[2017-10-17] MEDS: MULTIVITAMINS WITH MINERALS, THERAPEUTIC TABLET PO SCH (09:00)
[2017-10-17 09:34] VITALS: BP 114/68
[2017-10-17 16:00] VITALS: BP 120/76
[2017-10-17 16:05] VITALS: BP 120/76
[2017-10-17] MEDS: ZOLPIDEM TARTRATE 10 MG TABLET PO PRN (20:16)
[2017-10-17] MEDS: LORazepam 2 MG TABLET PO PRN (21:19)
[2017-10-17 21:20] VITALS: BP 117/65
[2017-10-18 06:34] VITALS: BP 120/62
[2017-10-18 06:35] VITALS: BP 120/62
[2017-10-18 08:41] VITALS: BP 115/63
[2017-10-18] MEDS ORDERED: DULO30CA2 PO (08:52)
[2017-10-18] MEDS: FOLIC ACID 1 MG TABLET PO SCH (08:58)
[2017-10-18] MEDS: DULoxetine HCL 30 MG CAPSULE PO SCH (08:58)
[2017-10-18] MEDS: MULTIVITAMINS WITH MINERALS, THERAPEUTIC TABLET PO SCH (08:58)
[2017-10-18] MEDS: LORazepam 2 MG TABLET PO PRN (09:49)
== END 2017-10-18 10:02 | disposition home or self-care (01) | DRG 750 ==
LOC: B2S 20:49
DX: F25.1 Schizoaffective disorder, depressive type (principal); R45.851 Suicidal ideations; F10.20 Alcohol dependence, uncomplicated; F12.10 Cannabis abuse, uncomplicated; F15.10 Other stimulant abuse, uncomplicated; J45.909 Unspecified asthma, uncomplicated; L02.12 Furuncle of neck; Z71.41 Alcohol abuse counseling and surveillance of alcoholic; Z71.51 Drug abuse counseling and surveillance of drug abuser; Z87.820 Personal history of traumatic brain injury; Z88.8 Allergy status to other drugs, medicaments and biological substances
CPT/HCPCS: 87081